=== PATIENT | male | born 1955 | race Caucasian/White ===

== ENCOUNTER 2021-09-19 09:40 | Inpatient (IN) | payer MEDICAID, OTHER ==
[~2021-09-19] VITALS: Ht 157.5 cm; Wt 65.3 kg
[2021-09-19] MEDS ORDERED: PANTOPRAZOLE SODIUM 40 MG/VIAL IV STA (10:43)
[2021-09-19 11:06] LABS: BASOPHILS % 0.9 % (0.0-2.0); EOSINOPHILS % 1.4 % (0.0-5.0); HEMATOCRIT. 48.1 % (42.0-52.0); HEMOGLOBIN. 16.7 g/dL (14.0-18.0); LYMPHOCYTES % 27.3 % (20.0-50.0); MEAN CORPUSCULAR HEMOGLOBIN 37.3 pg (28.0-32.0); MEAN CORPUSCULAR VOLUME 107.4 fL (80.0-94.0); MEAN PLATELET VOLUME 9.8 fl (7.4-10.4); MONOCYTES % 9.8 % (2.0-8.0); NEUTROPHILS % 60.6 % (40.0-76.0); PLATELET 170 x1000/uL (130-400); RED BLOOD CELL COUNT 4.48 mill/uL (4.7-6.1); RED CELL DISTRIBUTION WIDTH 16.3 % (11.6-14.6)
[2021-09-19 11:10] LABS: CHLORIDE 105 mEq/L (98-107)
[2021-09-19 11:15] LABS: INR 1.2
[2021-09-19] MEDS ORDERED: CLONIDINE 0.1MG TABLET PO PRN (14:00)
[2021-09-19] MEDS ORDERED: IPRATROPIUM/ALBUTEROL 0.5-3(2.5)MG/3ML NEB HHN PRN (14:00)
[2021-09-19] MEDS ORDERED: LORAZEPAM 2MG/ML CPJ IV PRN (14:00)
[2021-09-19] MEDS ORDERED: GUAIFENESIN 200MG/10ML SUGAR FREE UDC PO PRN (14:00)
[2021-09-19] MEDS ORDERED: DOCUSATE SODIUM 100MG CAPSULE PO PRN (14:00)
[2021-09-19] MEDS ORDERED: ONDANSETRON HCL 4MG/2ML INJ IV PRN ×2 (14:00→15:15)
[2021-09-19] MEDS: LACTATED RINGERS 1,000 ML IV SCH (14:00)
[2021-09-19] MEDS ORDERED: MAGNESIUM/ALUMINUM HYDROXIDE/SIMETHICONE 30ML UDC PO PRN (14:00)
[2021-09-19] MEDS ORDERED: HYDROCODONE/ACETAMINOPHEN 5/325MG TABLET PO PRN (14:00)
[2021-09-19] MEDS ORDERED: DIPHENHYDRAMINE 50MG/ML VIAL IV PRN (14:00)
[2021-09-19] MEDS: CEFTRIAXONE 1 G PREMIX 50 ML IV SCH (15:00)
[2021-09-19 15:57] LABS: HEPATITIS B SURFACE ANTIGEN NEGATIVE
[2021-09-19] MEDS: PANTOPRAZOLE SODIUM 40 MG/VIAL IV SCH (17:00)
[2021-09-19] MEDS ORDERED: IOHEXOL-300 100 ML BOTTLE ONE (18:23)
[2021-09-19 18:56] VITALS: BP 138/60
[2021-09-19 19:06] VITALS: BP 138/60
[2021-09-19 20:10] VITALS: BP 119/72
[2021-09-20 00:23] VITALS: BP 112/63
[2021-09-20] MEDS: LACTATED RINGERS 1,000 ML IV SCH ×2 (03:00→16:20)
[2021-09-20 04:34] VITALS: BP 109/65
[2021-09-20 04:45] LABS: CLARITY URINE CLEAR (CLEAR); COLOR URINE ORANGE (YELLOW); KETONES URINE TRACE (NEGATIVE); LEUKOCYTE ESTERASE URINE 1+ (NEGATIVE); NITRITE URINE POSITIVE (NEGATIVE); OCCULT BLOOD URINE NEGATIVE (NEGATIVE); PROTEIN URINE 1+ (NEGATIVE); SPECIFIC GRAVITY URINE 1.065 (1.005-1.030)
[2021-09-20 05:12] LABS: *AMPHETAMINES SCREEN URINE NEGATIVE (NEGATIVE)
[2021-09-20 05:13] LABS: *BARBITURATES SCREEN URINE NEGATIVE (NEGATIVE); *BENZODIAZEPINES SCREEN URINE NEGATIVE (NEGATIVE); *COCAINE SCREEN URINE NEGATIVE (NEGATIVE); METHADONE URINE SCREEN NEGATIVE (NEGATIVE); OPIATES URINE SCREEN PRESUMTIVE POSITIVE (NEGATIVE); PHENCYCLIDINE URINE SCREEN NEGATIVE (NEGATIVE)
[2021-09-20 05:14] LABS: CANNABINOID URINE SCREEN NEGATIVE (NEGATIVE)
[2021-09-20] MEDS ORDERED: LIDOCAINE HCL 1% 10 MG/ML 10ML VIAL ONE ×2 (07:53→08:49)
[2021-09-20 08:00] VITALS: BP 111/71
[2021-09-20 08:42] LABS: HEMATOCRIT. 41.4 % (42.0-52.0); HEMOGLOBIN. 14.3 g/dL (14.0-18.0); MEAN CORPUSCULAR HEMOGLOBIN 36.6 pg (28.0-32.0); MEAN CORPUSCULAR VOLUME 105.9 fL (80.0-94.0); MEAN PLATELET VOLUME 10.4 fl (7.4-10.4); PLATELET 137 x1000/uL (130-400); RED BLOOD CELL COUNT 3.91 mill/uL (4.7-6.1); RED CELL DISTRIBUTION WIDTH 15.8 % (11.6-14.6)
[2021-09-20] MEDS ORDERED: SODIUM BICARBONATE 4% (2.4MEQ) 5ML VIAL IV ONE (08:50)
[2021-09-20 08:56] LABS: INR 1.4; PROTHROMBIN TIME 14.2 sec (9.6-11.0)
[2021-09-20 09:00] LABS: CHLORIDE 107 mEq/L (98-107)
[2021-09-20 09:07] LABS: LDL CHOLESTEROL 73 mg/dL (5-100)
[2021-09-20 09:08] LABS: HDL CHOLESTEROL 27 mg/dL (40-59)
[2021-09-20 09:09] LABS: CREATINE KINASE 29 IU/L (39-308); T4 FREE 1.55 ng/dL (0.76-1.46)
[2021-09-20] MEDS: PANTOPRAZOLE SODIUM 40 MG/VIAL IV SCH ×2 (10:09→17:49)
[2021-09-20 12:00] VITALS: BP 116/68
[2021-09-20 13:45] LABS: PLATELET ESTIMATE NORMAL
[2021-09-20] MEDS: CEFTRIAXONE 1 G PREMIX 50 ML IV SCH (15:00)
[2021-09-20 16:00] VITALS: BP 110/71
[2021-09-20 20:00] VITALS: BP 110/57
[2021-09-20] MEDS ORDERED: CHLORDIAZEPOXIDE 25MG CAPSULE PO NR (22:15)
[2021-09-20] MEDS ORDERED: NALOXONE HCL 0.4MG/ML VIAL IV PRN (22:30)
[2021-09-21] VITALS: BP 104/63
[2021-09-21 04:00] VITALS: BP 123/71
[2021-09-21] MEDS: LACTATED RINGERS 1,000 ML IV SCH (04:55)
[2021-09-21 06:30] LABS: BASOPHILS % 0.7 % (0.0-2.0); EOSINOPHILS % 1.7 % (0.0-5.0); HEMATOCRIT. 43.4 % (42.0-52.0); HEMOGLOBIN. 14.9 g/dL (14.0-18.0); LYMPHOCYTES % 25.9 % (20.0-50.0); MEAN CORPUSCULAR HEMOGLOBIN 36.6 pg (28.0-32.0); MEAN CORPUSCULAR VOLUME 106.6 fL (80.0-94.0); MEAN PLATELET VOLUME 10.5 fl (7.4-10.4); NEUTROPHILS % 59.7 % (40.0-76.0); PLATELET 130 x1000/uL (130-400); RED BLOOD CELL COUNT 4.08 mill/uL (4.7-6.1); RED CELL DISTRIBUTION WIDTH 15.4 % (11.6-14.6)
[2021-09-21 06:37] LABS: CHLORIDE 105 mEq/L (98-107)
[2021-09-21 08:00] VITALS: BP 107/66
[2021-09-21] MEDS: PANTOPRAZOLE SODIUM 40 MG/VIAL IV SCH ×2 (08:43→17:13)
[2021-09-21] MEDS ORDERED: CEFTRIAXONE 1,000 MG in DEXTROSE 5% WATER 50 ML IV SCH (09:00)
[2021-09-21 12:00] VITALS: BP 116/70
[2021-09-21] MEDS ORDERED: CITA10TA16 PO (15:34)
[2021-09-21] MEDS ORDERED: CITA20TA75 MT (15:39)
[2021-09-21] MEDS ORDERED: L25 MT (15:39)
[2021-09-21 16:00] VITALS: BP 111/67
[2021-09-21 16:22] VITALS: BP 111/67
[2021-09-21] MEDS ORDERED: LACTULOSE 20G/30ML UDC PO SCH (22:00)
[2021-09-22] MEDS ORDERED: THIAMINE HCL 100MG TABLET PO SCH (09:00)
[2021-09-22] MEDS ORDERED: CITALOPRAM HYDROBROMIDE 10MG TABLET PO SCH (09:00)
[2021-09-22] MEDS ORDERED: FOLIC ACID 1MG TABLET PO SCH (09:00)
== END 2021-09-21 17:50 | disposition home or self-care (01) | DRG 280 ==
LOC: ER 09:40 → EDBEDREQ 11:01 → 7EST 12:08 → EDBEDREQ 12:10 → EDBEDREQTM 12:10 → ER 12:22
PROVIDERS: ADMIT Student in an Organized Health Care Education/Training Program; ATTEND Student in an Organized Health Care Education/Training Program
PROC: 0W9G3ZZ Drainage of Peritoneal Cavity, Percutaneous Approach (ICD-10-PCS; principal; 2021-09-20)
PROC: 02HV33Z Insertion of Infusion Device into Superior Vena Cava, Percutaneous Approach (ICD-10-PCS; 2021-09-20)
PROC: B518ZZA Fluoroscopy of Superior Vena Cava, Guidance (ICD-10-PCS; 2021-09-20)
PROC: B548ZZA Ultrasonography of Superior Vena Cava, Guidance (ICD-10-PCS; 2021-09-20)
DX: K70.11 Alcoholic hepatitis with ascites (principal); K76.6 Portal hypertension; E72.20 Disorder of urea cycle metabolism, unspecified; K92.0 Hematemesis; I85.10 Secondary esophageal varices without bleeding; K92.2 Gastrointestinal hemorrhage, unspecified; F32.9 Major depressive disorder, single episode, unspecified; Z53.29 Procedure and treatment not carried out because of patient's decision for other reasons; F10.20 Alcohol dependence, uncomplicated; Y90.5 Blood alcohol level of 100-119 mg/100 ml; Z20.822 Contact with and (suspected) exposure to COVID-19; R63.4 Abnormal weight loss; F41.1 Generalized anxiety disorder; I10 Essential (primary) hypertension; Z68.26 Body mass index [BMI] 26.0-26.9, adult; Z88.0 Allergy status to penicillin; Z71.41 Alcohol abuse counseling and surveillance of alcoholic
CPT/HCPCS: 36415; 36573; 49083; 71045; 74177; 76700; 80048; 80053; 80061; 80076; 80305; 80320; 81003; 82105; 82140; 82150; 82550; 82746; 83540; 83550; 83615; 83880; 84134; 84439; 84443; 84478; 84484; 85025; 86705; 86709; 86803; 86850; 86900; 87340; 87426; 93970; 99285; C1725; C1769; C9113; J0696; J3490; J7042; J7060; Q9967; G0480

== ENCOUNTER 2022-01-22 06:16 | Emergency (ER) | payer MEDICAID ==
[~2022-01-22] VITALS: Ht 154.9 cm; Wt 68.7 kg
[~2022-01-22 06:16] MED LIST: CITA20TA75 MT; L25 MT
[2022-01-22] MEDS ORDERED: KETOROLAC 30MG/ML VIAL IV STA (08:02)
[2022-01-22 08:45] VITALS: BP 103/76
[2022-01-22 08:59] LABS: BASOPHILS % 1.1 % (0.0-2.0); EOSINOPHILS % 1.7 % (0.0-5.0); HEMATOCRIT. 44.5 % (42.0-52.0); LYMPHOCYTES % 34.7 % (20.0-50.0); MEAN CORPUSCULAR HEMOGLOBIN 33.7 pg (28.0-32.0); MEAN CORPUSCULAR VOLUME 99.8 fL (80.0-94.0); MEAN PLATELET VOLUME 9.5 fl (7.4-10.4); MONOCYTES % 8.2 % (2.0-8.0); NEUTROPHILS % 54.3 % (40.0-76.0); PLATELET 123 x1000/uL (130-400); RED BLOOD CELL COUNT 4.45 mill/uL (4.7-6.1); RED CELL DISTRIBUTION WIDTH 18.6 % (11.6-14.6)
[2022-01-22 09:06] LABS: CHLORIDE 106 mEq/L (98-107)
[2022-01-22 10:46] LABS: INR 1.4; PROTHROMBIN TIME 14.6 sec (9.6-11.0)
[2022-01-22] MEDS ORDERED: LIDOCAINE HCL 1% 10 MG/ML 10ML VIAL ONE (11:24)
[2022-01-22] MEDS ORDERED: SODIUM BICARBONATE 4% (2.4MEQ) 5ML VIAL IV ONE (11:24)
[2022-02-17] MEDS ORDERED: SPIR25TA MT (08:58)
[2022-02-17] MEDS ORDERED: METR-167 MT (08:58)
[2022-02-17] MEDS ORDERED: LEVO500T90 MT (08:58)
[2022-02-17] MEDS ORDERED: FURO-152 MT (08:58)
== END 2022-01-22 13:13 | disposition home or self-care (01) ==
LOC: ER 06:16
DX: R18.8 Other ascites (principal); Z88.0 Allergy status to penicillin; I10 Essential (primary) hypertension
CPT/HCPCS: 36415; 49083; 80053; 85025; 85610; 87426; 93005; 96374; 99285; J1885; J3490; Z7610

== ENCOUNTER 2022-02-01 11:46 | Emergency (ER) | payer MEDICAID ==
[~2022-02-01] VITALS: Ht 167.6 cm; Wt 75.0 kg
[2022-02-01 12:09] VITALS: BP 129/79
[2022-02-01] MEDS ORDERED: LIDOCAINE HCL 1% 20ML VIAL (Pyxis) INJ INFIL STA (13:51)
[2022-02-01 15:24] LABS: BASOPHILS % 0.9 % (0.0-2.0); EOSINOPHILS % 0.7 % (0.0-5.0); HEMATOCRIT. 45.8 % (42.0-52.0); HEMOGLOBIN. 15.7 g/dL (14.0-18.0); LYMPHOCYTES % 20.3 % (20.0-50.0); MEAN CORPUSCULAR HEMOGLOBIN 34.5 pg (28.0-32.0); MEAN CORPUSCULAR VOLUME 100.7 fL (80.0-94.0); MEAN PLATELET VOLUME 9.1 fl (7.4-10.4); MONOCYTES % 14.9 % (2.0-8.0); NEUTROPHILS % 63.2 % (40.0-76.0); PLATELET 134 x1000/uL (130-400); RED BLOOD CELL COUNT 4.54 mill/uL (4.7-6.1); RED CELL DISTRIBUTION WIDTH 17.4 % (11.6-14.6)
[2022-02-01 15:34] LABS: INR 1.3
== END 2022-02-01 18:01 | disposition home or self-care (01) ==
LOC: ER 11:46
DX: R18.8 Other ascites (principal); K74.60 Unspecified cirrhosis of liver; I10 Essential (primary) hypertension; Z88.0 Allergy status to penicillin
CPT/HCPCS: 36415; 85025; 99283

== ENCOUNTER 2022-02-02 07:32 | Emergency (ER) | payer MEDICAID ==
[~2022-02-02] VITALS: Ht 160 cm; Wt 77.0 kg
[2022-02-02 08:15] LABS: EOSINOPHILS % 2.3 % (0.0-5.0); HEMATOCRIT. 44.7 % (42.0-52.0); HEMOGLOBIN. 15.4 g/dL (14.0-18.0); LYMPHOCYTES % 26.8 % (20.0-50.0); MEAN CORPUSCULAR HEMOGLOBIN 34.3 pg (28.0-32.0); MEAN CORPUSCULAR VOLUME 99.8 fL (80.0-94.0); MEAN PLATELET VOLUME 8.5 fl (7.4-10.4); MONOCYTES % 13.5 % (2.0-8.0); NEUTROPHILS % 56.4 % (40.0-76.0); PLATELET 139 x1000/uL (130-400); RED BLOOD CELL COUNT 4.48 mill/uL (4.7-6.1); RED CELL DISTRIBUTION WIDTH 17.6 % (11.6-14.6)
[2022-02-02 08:26] LABS: INR 1.3; PARTIAL THROMBOPLASTIN TIME 34.2 sec (23.4-31.0); PROTHROMBIN TIME 13.9 sec (9.6-11.0)
[2022-02-02] MEDS ORDERED: SODIUM BICARBONATE 4% (2.4MEQ) 5ML VIAL IV ONE (11:20)
[2022-02-02] MEDS ORDERED: LIDOCAINE HCL/PF 1% 10 MG/ML 5ML VIAL ONE (11:20)
[2022-02-02 13:16] VITALS: BP 103/70
== END 2022-02-02 13:18 | disposition home or self-care (01) ==
LOC: ER 08:12
DX: R18.8 Other ascites (principal); I10 Essential (primary) hypertension; Z88.0 Allergy status to penicillin; Z20.822 Contact with and (suspected) exposure to COVID-19
CPT/HCPCS: 36415; 49083; 85025; 85610; 85730; 87426; 99285; C9803; J3490; Z7610

== ENCOUNTER 2022-02-14 07:51 | Inpatient (IN) | payer MEDICAID, OTHER ==
[~2022-02-14] VITALS: Ht 162.6 cm; Wt 65.8 kg
[2022-02-14 09:42] LABS: BASOPHILS % 1.3 % (0.0-2.0); EOSINOPHILS % 1.4 % (0.0-5.0); HEMATOCRIT. 44.5 % (42.0-52.0); HEMOGLOBIN. 14.9 g/dL (14.0-18.0); LYMPHOCYTES % 38.9 % (20.0-50.0); MEAN CORPUSCULAR HEMOGLOBIN 34.8 pg (28.0-32.0); MEAN CORPUSCULAR VOLUME 104.1 fL (80.0-94.0); MEAN PLATELET VOLUME 8.4 fl (7.4-10.4); MONOCYTES % 10.4 % (2.0-8.0); PLATELET 125 x1000/uL (130-400); RED BLOOD CELL COUNT 4.27 mill/uL (4.7-6.1); RED CELL DISTRIBUTION WIDTH 17.4 % (11.6-14.6)
[2022-02-14 09:49] LABS: CHLORIDE 104 mEq/L (98-107)
[2022-02-14 09:58] LABS: D-DIMER 10.62 mg/L FEU (<0.50); INR 1.4; PROTHROMBIN TIME 14.7 sec (9.6-11.0)
[2022-02-14 10:02] LABS: ETHANOL BLOOD < 10 mg/dL
[2022-02-14] MEDS ORDERED: SODIUM BICARBONATE 4% (2.4MEQ) 5ML VIAL IV ONE (10:48)
[2022-02-14] MEDS ORDERED: LIDOCAINE HCL 1% 30ML VIAL (10MG/ML) ONE (10:48)
[2022-02-14] MEDS ORDERED: SODIUM CHLORIDE 0.9% 1,000 ML IV ONE (18:00)
[2022-02-14] MEDS ORDERED: CEFTRIAXONE 2 G PREMIX 50 ML IV ONE (18:00)
[2022-02-14 18:23] LABS: CLARITY URINE CLEAR (CLEAR); COLOR URINE ORANGE (YELLOW); KETONES URINE NEGATIVE (NEGATIVE); LEUKOCYTE ESTERASE URINE TRACE (NEGATIVE); NITRITE URINE POSITIVE (NEGATIVE); OCCULT BLOOD URINE NEGATIVE (NEGATIVE); PH URINE 5.5 (4.5-8.0); PROTEIN URINE TRACE (NEGATIVE); SPECIFIC GRAVITY URINE 1.029 (1.005-1.030)
[2022-02-14 18:29] LABS: *AMPHETAMINES SCREEN URINE NEGATIVE (NEGATIVE); *BARBITURATES SCREEN URINE NEGATIVE (NEGATIVE); *BENZODIAZEPINES SCREEN URINE NEGATIVE (NEGATIVE); *COCAINE SCREEN URINE NEGATIVE (NEGATIVE); CANNABINOID URINE SCREEN NEGATIVE (NEGATIVE); METHADONE URINE SCREEN NEGATIVE (NEGATIVE); OPIATES URINE SCREEN NEGATIVE (NEGATIVE); PHENCYCLIDINE URINE SCREEN NEGATIVE (NEGATIVE)
[2022-02-14] MEDS ORDERED: CEFTRIAXONE 2 G in DEXTROSE 5% WATER 50 ML IV SCH (18:30)
[2022-02-14] MEDS ORDERED: CLONIDINE 0.1MG TABLET PO PRN (19:00)
[2022-02-14] MEDS ORDERED: ACETAMINOPHEN 325MG TABLET PO PRN ×2 (19:00)
[2022-02-14] MEDS ORDERED: KETOROLAC 15MG/ML VIAL IV PRN (19:00)
[2022-02-14] MEDS ORDERED: ONDANSETRON HCL 4MG/2ML INJ IV PRN (19:00)
[2022-02-14] MEDS ORDERED: ZOLPIDEM TARTRATE 5MG TABLET PO PRN (19:00)
[2022-02-14] MEDS ORDERED: GUAIFENESIN 200MG/10ML SUGAR FREE UDC PO PRN (19:00)
[2022-02-14] MEDS ORDERED: DOCUSATE SODIUM 100MG CAPSULE PO PRN (19:00)
[2022-02-14] MEDS ORDERED: MAGNESIUM/ALUMINUM HYDROXIDE/SIMETHICONE 30ML UDC PO PRN (19:00)
[2022-02-14] MEDS ORDERED: IPRATROPIUM/ALBUTEROL 0.5-3(2.5)MG/3ML NEB NEB PRN (19:00)
[2022-02-14] MEDS ORDERED: NITROGLYCERIN 0.4MG TABLET SL SL PRN (19:15)
[2022-02-14 19:38] LABS: T4 FREE 1.62 ng/dL (0.76-1.46)
[2022-02-14] MEDS ORDERED: METRONIDAZOLE 500 MG PREMIX 100 ML IV SCH (20:00)
[2022-02-14 20:06] LABS: FOLIC ACID (FOLATE) SERUM 6.9 ng/mL (>5.38)
[2022-02-14] MEDS: ENOXAPARIN 40MG/0.4ML SYR SUBCUT SCH (20:21)
[2022-02-14 21:50] VITALS: BP 99/56
[2022-02-14] MEDS: ASCORBIC ACID 500 MG TABLET PO SCH (22:48)
[2022-02-14] MEDS: FAMOTIDINE 20MG TABLET PO SCH (22:49)
[2022-02-15] VITALS (8 sets, daily range): BP systolic 98–117; BP diastolic 54–69
[2022-02-15] MEDS: METRONIDAZOLE 500 MG PREMIX 100 ML IV SCH ×3 (05:49→21:32)
[2022-02-15 06:09] LABS: CHLORIDE 105 mEq/L (98-107)
[2022-02-15 06:18] LABS: PHOSPHORUS 2.8 mg/dL (2.5-4.9)
[2022-02-15 06:22] LABS: BASOPHILS % 1.1 % (0.0-2.0); EOSINOPHILS % 2.3 % (0.0-5.0); HEMATOCRIT. 41.9 % (42.0-52.0); HEMOGLOBIN. 14.3 g/dL (14.0-18.0); LYMPHOCYTES % 40.2 % (20.0-50.0); MEAN CORPUSCULAR HEMOGLOBIN 35.4 pg (28.0-32.0); MEAN CORPUSCULAR VOLUME 103.7 fL (80.0-94.0); NEUTROPHILS % 45.4 % (40.0-76.0); RED BLOOD CELL COUNT 4.04 mill/uL (4.7-6.1); RED CELL DISTRIBUTION WIDTH 17.3 % (11.6-14.6)
[2022-02-15] MEDS: ZINC SULFATE 220 MG ( 50 ) CAPSULE PO SCH (08:45)
[2022-02-15] MEDS: FAMOTIDINE 20MG TABLET PO SCH ×2 (08:45→21:31)
[2022-02-15] MEDS: ASCORBIC ACID 500 MG TABLET PO SCH ×2 (08:45→21:31)
[2022-02-15] MEDS: CHOLECALCIFEROL (D3) 1000 UNIT TABLET PO SCH (08:46)
[2022-02-15] MEDS ORDERED: DEXAMETHASONE 4MG TABLET PO SCH (09:00)
[2022-02-15 10:01] LABS: MEAN PLATELET VOLUME 9.1 fl (7.4-10.4); PLATELET 128 x1000/uL (130-400)
[2022-02-15] MEDS ORDERED: CEFTRIAXONE 1,000 MG in DEXTROSE 5% WATER 50 ML IV SCH (20:00)
[2022-02-15] MEDS: ENOXAPARIN 40MG/0.4ML SYR SUBCUT SCH (21:32)
[2022-02-15] MEDS: CEFTRIAXONE 1,000 MG in DEXTROSE 5% WATER 50 ML IV SCH (22:19)
[2022-02-16] VITALS: BP 120/56
[2022-02-16 04:00] VITALS: BP 115/69
[2022-02-16] MEDS: METRONIDAZOLE 500 MG PREMIX 100 ML IV SCH ×3 (06:23→21:57)
[2022-02-16] MEDS: ZINC SULFATE 220 MG ( 50 ) CAPSULE PO SCH (09:07)
[2022-02-16] MEDS: ASCORBIC ACID 500 MG TABLET PO SCH ×2 (09:07→22:07)
[2022-02-16] MEDS: CHOLECALCIFEROL (D3) 1000 UNIT TABLET PO SCH (09:07)
[2022-02-16] MEDS: FAMOTIDINE 20MG TABLET PO SCH ×2 (09:07→22:07)
[2022-02-16] MEDS ORDERED: KETOROLAC 15MG/ML VIAL IV PRN (09:30)
[2022-02-16] MEDS: ENOXAPARIN 40MG/0.4ML SYR SUBCUT SCH (21:57)
[2022-02-16] MEDS: CEFTRIAXONE 1,000 MG in DEXTROSE 5% WATER 50 ML IV SCH (21:57)
[2022-02-17] MEDS: METRONIDAZOLE 500 MG PREMIX 100 ML IV SCH (05:51)
[2022-02-17 08:00] VITALS: BP 94/58
[2022-02-17] MEDS: FAMOTIDINE 20MG TABLET PO SCH (08:32)
[2022-02-17] MEDS: ASCORBIC ACID 500 MG TABLET PO SCH (08:32)
[2022-02-17] MEDS: ZINC SULFATE 220 MG ( 50 ) CAPSULE PO SCH (08:32)
[2022-02-17] MEDS: CHOLECALCIFEROL (D3) 1000 UNIT TABLET PO SCH (08:33)
[2022-02-17] MEDS ORDERED: SPIR25TA MT (08:58)
[2022-02-17] MEDS ORDERED: METR-167 MT (08:58)
[2022-02-17] MEDS ORDERED: FURO-152 MT (08:58)
[2022-02-17] MEDS ORDERED: LEVO500T90 MT (08:58)
[2022-02-17 12:00] VITALS: BP 118/63
[2022-02-17 12:35] VITALS: BP 118/63
== END 2022-02-17 14:49 | disposition home or self-care (01) | DRG 720 ==
LOC: ER 07:51 → 6WST 17:56 → EDBEDREQTM 18:01 → EDBEDREQ 18:01 → ENRESERV 19:47
PROVIDERS: ADMIT Internal Medicine; ATTEND Internal Medicine
PROC: 0W9G3ZZ Drainage of Peritoneal Cavity, Percutaneous Approach (ICD-10-PCS; principal; 2022-02-14)
DX: A41.9 Sepsis, unspecified organism (principal); E43 Unspecified severe protein-calorie malnutrition; K65.2 Spontaneous bacterial peritonitis; K70.31 Alcoholic cirrhosis of liver with ascites; K76.6 Portal hypertension; E87.1 Hypo-osmolality and hyponatremia; R82.81 Pyuria; F10.20 Alcohol dependence, uncomplicated; Z20.822 Contact with and (suspected) exposure to COVID-19; E87.6 Hypokalemia; Z88.0 Allergy status to penicillin; Z68.24 Body mass index [BMI] 24.0-24.9, adult
CPT/HCPCS: 36415; 49083; 80053; 80305; 80320; 81003; 82607; 82746; 83036; 83540; 83550; 83605; 83735; 83880; 84100; 84439; 84443; 84484; 85025; 85379; 87075; 87426; 93970; 99285; C9803; J0696; J1650; J3490; J7030; J7060; J8540; G0480

== ENCOUNTER 2022-03-02 06:56 | Emergency (ER) | payer MEDICAID, OTHER ==
[~2022-03-02] VITALS: Ht 152.4 cm; Wt 63.3 kg
[~2022-03-02 06:56] MED LIST changes: -CITA20TA75 MT; +FURO-152 MT; -L25 MT; +LEVO500T90 MT; +METR-167 MT; +SPIR25TA MT
[2022-03-02 07:00] VITALS: BP 114/63
[2022-03-02 09:14] LABS: CHLORIDE 99 mEq/L (98-107)
[2022-03-02 09:14] LABS: BASOPHILS % 0.9 % (0.0-2.0); EOSINOPHILS % 1.9 % (0.0-5.0); HEMATOCRIT. 44.9 % (42.0-52.0); HEMOGLOBIN. 15.6 g/dL (14.0-18.0); LYMPHOCYTES % 33.5 % (20.0-50.0); MEAN CORPUSCULAR HEMOGLOBIN 35.4 pg (28.0-32.0); MEAN CORPUSCULAR VOLUME 102.2 fL (80.0-94.0); MEAN PLATELET VOLUME 8.9 fl (7.4-10.4); MONOCYTES % 10.5 % (2.0-8.0); NEUTROPHILS % 53.2 % (40.0-76.0); PLATELET 123 x1000/uL (130-400); RED CELL DISTRIBUTION WIDTH 16.4 % (11.6-14.6)
[2022-03-02 09:25] LABS: INR 1.3; PROTHROMBIN TIME 14.1 sec (9.6-11.0)
[2022-03-02] MEDS ORDERED: LIDOCAINE HCL 1% 30ML VIAL (10MG/ML) ONE (10:34)
[2022-03-02] MEDS ORDERED: SODIUM BICARBONATE 4% (2.4MEQ) 5ML VIAL IV ONE (10:34)
== END 2022-03-02 14:54 | disposition home or self-care (01) ==
LOC: ER 06:56
DX: R18.8 Other ascites (principal); I10 Essential (primary) hypertension; Z20.822 Contact with and (suspected) exposure to COVID-19; Z88.0 Allergy status to penicillin; Z98.890 Other specified postprocedural states
CPT/HCPCS: 36415; 49083; 80053; 83690; 85025; 85610; 87070; 87075; 87205; 87426; 89050; 99285; C9803; J3490; Z7610

== ENCOUNTER 2022-03-07 09:28 | Emergency (ER) | payer OTHER ==
[~2022-03-07] VITALS: Ht 165.1 cm; Wt 68.0 kg
[2022-03-07] MEDS ORDERED: ACETAMINOPHEN 325MG TABLET PO STA (10:14)
[2022-03-07] MEDS ORDERED: LIDOCAINE HCL 1% 30ML VIAL (10MG/ML) ONE (10:27)
[2022-03-07] MEDS ORDERED: SODIUM BICARBONATE 4% (2.4MEQ) 5ML VIAL IV ONE (10:28)
[2022-03-07 10:47] LABS: HEMATOCRIT. 42.9 % (42.0-52.0); HEMOGLOBIN. 14.9 g/dL (14.0-18.0); MEAN CORPUSCULAR HEMOGLOBIN 35.6 pg (28.0-32.0); MEAN CORPUSCULAR VOLUME 102.2 fL (80.0-94.0); MEAN PLATELET VOLUME 10.2 fl (7.4-10.4); RED CELL DISTRIBUTION WIDTH 15.7 % (11.6-14.6)
[2022-03-07 10:55] LABS: CHLORIDE 90 mEq/L (98-107)
[2022-03-07 11:50] LABS: PLATELET 183 x1000/uL (130-400)
[2022-03-07 11:54] LABS: PLATELET ESTIMATE NORMAL
[2022-03-07 12:56] LABS: INR 1.3; PROTHROMBIN TIME 13.8 sec (9.6-11.0)
[2022-03-07] MEDS ORDERED: ACETAMINOPHEN 325MG TABLET PO NR (13:30)
[2022-03-07 15:00] VITALS: BP 97/61
== END 2022-03-07 15:20 | disposition home or self-care (01) ==
LOC: ER 09:28
DX: R18.8 Other ascites (principal); K74.60 Unspecified cirrhosis of liver; I12.9 Hypertensive chronic kidney disease with stage 1 through stage 4 chronic kidney disease, or unspecified chronic kidney disease; N18.9 Chronic kidney disease, unspecified; E87.1 Hypo-osmolality and hyponatremia; Z88.0 Allergy status to penicillin; Z20.822 Contact with and (suspected) exposure to COVID-19
CPT/HCPCS: 36415; 49083; 80053; 83690; 85025; 85610; 87070; 87075; 87205; 87426; 89050; 99285; C9803; J3490; Z7610

== ENCOUNTER 2022-03-18 05:26 | Emergency (ER) | payer OTHER ==
[~2022-03-18] VITALS: Ht 154.9 cm; Wt 59.7 kg
[2022-03-18 05:33] VITALS: BP 108/61
[2022-03-18 08:27] LABS: CLARITY URINE CLEAR (CLEAR); COLOR URINE DARK YELLOW (YELLOW); KETONES URINE TRACE (NEGATIVE); LEUKOCYTE ESTERASE URINE TRACE (NEGATIVE); NITRITE URINE NEGATIVE (NEGATIVE); OCCULT BLOOD URINE NEGATIVE (NEGATIVE); PH URINE 5.5 (4.5-8.0); PROTEIN URINE TRACE (NEGATIVE); SPECIFIC GRAVITY URINE 1.025 (1.005-1.030); UROBILINOGEN URINE 0.2 E.U./dL (0.2-1.0)
[2022-03-18 08:51] LABS: CHLORIDE 92 mEq/L (98-107)
[2022-03-18 08:54] LABS: BASOPHILS % 0.9 % (0.0-2.0); EOSINOPHILS % 1.3 % (0.0-5.0); HEMATOCRIT. 43.5 % (42.0-52.0); HEMOGLOBIN. 15.6 g/dL (14.0-18.0); LYMPHOCYTES % 25.8 % (20.0-50.0); MEAN CORPUSCULAR HEMOGLOBIN 36.7 pg (28.0-32.0); MEAN CORPUSCULAR VOLUME 102.1 fL (80.0-94.0); MONOCYTES % 9.2 % (2.0-8.0); NEUTROPHILS % 62.8 % (40.0-76.0); RED BLOOD CELL COUNT 4.26 mill/uL (4.7-6.1); RED CELL DISTRIBUTION WIDTH 16.4 % (11.6-14.6)
[2022-03-18 09:16] LABS: PLATELET 175 x1000/uL (130-400)
[2022-03-18 10:23] LABS: INR 1.2; PARTIAL THROMBOPLASTIN TIME 32.2 sec (23.4-31.0)
[2022-03-18] MEDS ORDERED: LIDOCAINE HCL 1% 30ML VIAL (10MG/ML) ONE (10:44)
[2022-03-18] MEDS ORDERED: SODIUM BICARBONATE 4% (2.4MEQ) 5ML VIAL IV ONE (10:45)
== END 2022-03-18 13:50 | disposition home or self-care (01) ==
LOC: ER 05:35
DX: R18.8 Other ascites (principal); R10.84 Generalized abdominal pain; Z88.0 Allergy status to penicillin; Z20.822 Contact with and (suspected) exposure to COVID-19
CPT/HCPCS: 36415; 49083; 80053; 81003; 83690; 83880; 84484; 85025; 85610; 85730; 86850; 86900; 86901; 87426; 99285; C9803; J3490; Z7610; 99284

== ENCOUNTER 2022-03-27 07:10 | Inpatient (IN) | payer OTHER ==
[2022-03-27] VITALS (38 sets, daily range): BP systolic 50–109; BP diastolic 22–68
[~2022-03-27] VITALS: Ht 152.4 cm; Wt 68.0 kg
[2022-03-27] MEDS ORDERED: SODIUM CHLORIDE 0.9% 1000ML BAG (SEPSIS BOLUS) IV ONE (08:00)
[2022-03-27] MEDS ORDERED: CEFTRIAXONE 2 G PREMIX 50 ML IV ONE (08:00)
[2022-03-27 08:36] LABS: HEMATOCRIT. 42.9 % (42.0-52.0); HEMOGLOBIN. 14.5 g/dL (14.0-18.0); MEAN CORPUSCULAR HEMOGLOBIN 35.3 pg (28.0-32.0); MEAN CORPUSCULAR VOLUME 104.4 fL (80.0-94.0); MEAN PLATELET VOLUME 7.9 fl (7.4-10.4); PLATELET 134 x1000/uL (130-400); RED BLOOD CELL COUNT 4.11 mill/uL (4.7-6.1); RED CELL DISTRIBUTION WIDTH 16.9 % (11.6-14.6)
[2022-03-27 08:41] LABS: CHLORIDE 95 mEq/L (98-107)
[2022-03-27] MEDS ORDERED: CEFTRIAXONE 2 G in DEXTROSE 5% WATER 50 ML IV NR (09:00)
[2022-03-27] MEDS ORDERED: ONDANSETRON HCL 4MG/2ML INJ IV ONE (09:15)
[2022-03-27 09:21] LABS: PLATELET ESTIMATE NORMAL
[2022-03-27] MEDS ORDERED: IOHEXOL-300 100 ML BOTTLE ONE (10:31)
[2022-03-27] MEDS ORDERED: MORPHINE SULFATE 4 MG/ML CPJ (NOT FOR IM USE) IV ONE (11:15)
[2022-03-27] MEDS ORDERED: SODIUM CHLORIDE 0.9% 1,000 ML IV NR (13:00)
[2022-03-27] MEDS ORDERED: PROPOFOL 10MG/ML 100ML 100 ML IV NR (13:30)
[2022-03-27] MEDS ORDERED: SUCCINYLCHOLINE CHLORIDE 200MG/10ML IV NR (13:30)
[2022-03-27] MEDS ORDERED: SODIUM BICARBONATE 8.4% 1 MEQ/ML 50ML SYR IV ONE (13:30)
[2022-03-27] MEDS ORDERED: NOREPINEPHRINE 8 MG in DEXT 5% WATER 242 ML IV PRN (13:30)
[2022-03-27] MEDS ORDERED: FENTANYL CITRATE/PF 50MCG/ML 2ML VIAL IV ONE (13:45)
[2022-03-27] MEDS ORDERED: FENTANYL 2500MCG/250ML PMX 250 ML IV ONE ×2 (13:45→14:45)
[2022-03-27] MEDS ORDERED: NOREPINEPHRINE 8MG/250ML PMX 250 ML IV ONE ×2 (13:45→17:03)
[2022-03-27 14:24] LABS: BG BASE EXCESS -24.2 mmol/L (-2.0-2.0); BG CARBOXYHEMOGLOBIN 0.5 % (0.5-1.5); BG DEOXYHEMOGLOBIN 5.7 % (0.0-5.0); BG HCO3 ACT 7.6 mmol/L (22.0-26.0); BG METHEMOGLOBIN 0.4 % (0.0-1.5); BG OXYGEN SATURATION 94.2 % (92.0-98.5); BG OXYHEMOGLOBIN 93.4 % (94.0-97.0); BG PCO2 35.8 mmHg (35.0-45.0); BG PH 6.942 (7.350-7.450); BG PO2 99.5 mmHg (75.0-100.0); BG SAMPLE SITE LEFT FEMORAL; BG TOTAL HEMOGLOBIN 15.9 g/dL (12.0-18.0); BG VENT MODE VENT - AC
[2022-03-27] MEDS ORDERED: ACETAMINOPHEN 650MG/20.3ML UDC GT PRN ×2 (14:30)
[2022-03-27] MEDS ORDERED: SODIUM BICARBONATE 150 MEQ in SODIUM CHLORIDE 0.45% 1,000 ML IV SCH (14:30)
[2022-03-27] MEDS ORDERED: ACETAMINOPHEN 325MG TABLET PO PRN ×2 (14:30)
[2022-03-27] MEDS ORDERED: CLONIDINE 0.1MG TABLET PO PRN (14:30)
[2022-03-27] MEDS ORDERED: PANTOPRAZOLE SODIUM 40 MG/VIAL IV SCH (14:30)
[2022-03-27] MEDS ORDERED: IPRATROPIUM/ALBUTEROL 0.5-3(2.5)MG/3ML NEB HHN PRN (14:30)
[2022-03-27] MEDS ORDERED: ONDANSETRON HCL 4MG/2ML INJ IV PRN (14:30)
[2022-03-27] MEDS ORDERED: DOCUSATE SODIUM 100MG CAPSULE PO PRN (14:30)
[2022-03-27] MEDS ORDERED: MIDAZOLAM HCL 100 MG in DEXT 5% WATER 80 ML IV ONE (14:45)
[2022-03-27] MEDS: IPRATROPIUM BROMIDE (0.02%) 0.5MG/2.5ML NEB HHN SCH ×2 (14:45→20:49)
[2022-03-27] MEDS ORDERED: PHENYLEPHRINE 100 MG in DEXT 5% WATER 240 ML IV PRN (14:45)
[2022-03-27] MEDS ORDERED: MIDAZOLAM HCL 100 MG in SODIUM CHLORIDE 0.9% 80 ML IV ONE (15:00)
[2022-03-27] MEDS: SODIUM BICARBONATE 150 MEQ in SODIUM CHLORIDE 0.45% 1,000 ML IV SCH (15:12)
[2022-03-27] MEDS ORDERED: SODIUM BICARBONATE 8.4% 1 MEQ/ML 50ML SYR IV NR (15:30)
[2022-03-27 15:47] LABS: BG BASE EXCESS -21.5 mmol/L (-2.0-2.0); BG CARBOXYHEMOGLOBIN 0.7 % (0.5-1.5); BG DEOXYHEMOGLOBIN 10.8 % (0.0-5.0); BG HCO3 ACT 7.7 mmol/L (22.0-26.0); BG METHEMOGLOBIN 0.5 % (0.0-1.5); BG OXYGEN SATURATION 89.1 % (92.0-98.5); BG PCO2 28.5 mmHg (35.0-45.0); BG PH 7.051 (7.350-7.450); BG PO2 68.7 mmHg (75.0-100.0); BG SAMPLE SITE LEFT FEMORAL; BG TOTAL HEMOGLOBIN 15.9 g/dL (12.0-18.0); BG VENT MODE VENT - AC
[2022-03-27] MEDS ORDERED: LEVOFLOXACIN 500MG PREMIX 100 ML IV NR (16:00)
[2022-03-27 16:18] LABS: INR 1.8; PROTHROMBIN TIME 18.6 sec (9.6-11.0)
[2022-03-27] MEDS ORDERED: AMPICILLIN SOD/SULBACTAM NA 1.5 G in SODIUM CHLORIDE 0.9% 50 ML IV SCH (16:30)
[2022-03-27] MEDS: PHENYLEPHRINE 100 MG in DEXT 5% WATER 240 ML IV PRN (16:59)
[2022-03-27] MEDS: ALBUMIN HUMAN 25GM/100ML (25%) IV SCH ×2 (17:01→22:44)
[2022-03-27 17:35] LABS: BG BASE EXCESS -17.4 mmol/L (-2.0-2.0); BG CARBOXYHEMOGLOBIN 0.6 % (0.5-1.5); BG DEOXYHEMOGLOBIN 5.5 % (0.0-5.0); BG HCO3 ACT 9.4 mmol/L (22.0-26.0); BG METHEMOGLOBIN 0.5 % (0.0-1.5); BG OXYGEN SATURATION 94.4 % (92.0-98.5); BG OXYHEMOGLOBIN 93.4 % (94.0-97.0); BG PCO2 26.2 mmHg (35.0-45.0); BG PH 7.173 (7.350-7.450); BG PO2 80.4 mmHg (75.0-100.0); BG SAMPLE SITE LEFT FEMORAL; BG TOTAL HEMOGLOBIN 14.6 g/dL (12.0-18.0); BG VENT MODE VENT - AC
[2022-03-27 18:11] LABS: CLARITY URINE CLEAR (CLEAR); COLOR URINE DARK YELLOW (YELLOW); KETONES URINE TRACE (NEGATIVE); LEUKOCYTE ESTERASE URINE NEGATIVE (NEGATIVE); NITRITE URINE POSITIVE (NEGATIVE); OCCULT BLOOD URINE NEGATIVE (NEGATIVE); PROTEIN URINE 1+ (NEGATIVE); SPECIFIC GRAVITY URINE 1.034 (1.005-1.030); UROBILINOGEN URINE 0.2 E.U./dL (0.2-1.0)
[2022-03-27] MEDS ORDERED: DEXTROSE 50% WATER 50ML SYRINGE IV ONE (18:29)
[2022-03-27 18:39] LABS: *AMPHETAMINES SCREEN URINE NEGATIVE (NEGATIVE); *BARBITURATES SCREEN URINE NEGATIVE (NEGATIVE); *BENZODIAZEPINES SCREEN URINE NEGATIVE (NEGATIVE); *COCAINE SCREEN URINE NEGATIVE (NEGATIVE); CANNABINOID URINE SCREEN NEGATIVE (NEGATIVE); METHADONE URINE SCREEN NEGATIVE (NEGATIVE); OPIATES URINE SCREEN NEGATIVE (NEGATIVE); PHENCYCLIDINE URINE SCREEN NEGATIVE (NEGATIVE)
[2022-03-27] MEDS: VASOPRESSIN 20 UNIT in SODIUM CHLORIDE 0.9% 99 ML IV PRN (19:29)
[2022-03-27] MEDS ORDERED: CEFTRIAXONE 2 G in DEXTROSE 5% WATER 50 ML IV SCH (21:00)
[2022-03-27] MEDS ORDERED: CEFTRIAXONE 2 G PREMIX 50 ML IV SCH (21:00)
[2022-03-27] MEDS: DEXTROSE 50% WATER 50ML SYRINGE IV PRN (21:05)
[2022-03-27] MEDS: METRONIDAZOLE 500 MG PREMIX 100 ML IV SCH (21:37)
[2022-03-27] MEDS: HYDROCORTISONE SOD SUCCINATE 100 MG/2 ML VIAL IV SCH (21:38)
[2022-03-27] MEDS: NOREPINEPHRINE 32 MG in DEXT 5% WATER 218 ML IV PRN (23:00)
[2022-03-27 23:07] LABS: BG BASE EXCESS -18.5 mmol/L (-2.0-2.0); BG CARBOXYHEMOGLOBIN 0.3 % (0.5-1.5); BG DEOXYHEMOGLOBIN 28.9 % (0.0-5.0); BG FRACTION INSPIRED OXYGEN 100; BG HCO3 ACT 10.5 mmol/L (22.0-26.0); BG METHEMOGLOBIN 0.5 % (0.0-1.5); BG OXYGEN SATURATION 70.9 % (92.0-98.5); BG OXYHEMOGLOBIN 70.3 % (94.0-97.0); BG PCO2 36.2 mmHg (35.0-45.0); BG PH 7.081 (7.350-7.450); BG PO2 41.9 mmHg (75.0-100.0); BG SAMPLE SITE LEFT FEMORAL; BG TOTAL HEMOGLOBIN 12.8 g/dL (12.0-18.0); BG VENT MODE VENT - AC
[2022-03-28] VITALS (121 sets, daily range): BP systolic 30–143; BP diastolic 21–83
[2022-03-28] MEDS: SODIUM BICARBONATE 150 MEQ in SODIUM CHLORIDE 0.45% 1,000 ML IV SCH ×3 (00:11→18:35)
[2022-03-28] MEDS: BLOOD SUGAR DIAGNOSTIC STRIP TEST SCH ×6 (00:20→20:25)
[2022-03-28] MEDS ORDERED: MIDAZOLAM HCL 100 MG in SODIUM CHLORIDE 0.9% 80 ML IV PRN (00:30)
[2022-03-28] MEDS ORDERED: SODIUM BICARBONATE 8.4% 1 MEQ/ML 50ML SYR IV NR (00:30)
[2022-03-28] MEDS ORDERED: FENTANYL 2500MCG/250ML PMX 250 ML IV PRN (00:30)
[2022-03-28] MEDS: DEXTROSE 50% WATER 50ML SYRINGE IV PRN ×3 (00:35→08:18)
[2022-03-28] MEDS: PHENYLEPHRINE 100 MG in DEXT 5% WATER 240 ML IV PRN ×3 (00:44→17:50)
[2022-03-28] MEDS: IPRATROPIUM BROMIDE (0.02%) 0.5MG/2.5ML NEB HHN SCH ×4 (01:00→20:15)
[2022-03-28] MEDS: VASOPRESSIN 20 UNIT in SODIUM CHLORIDE 0.9% 99 ML IV PRN ×2 (04:33→14:19)
[2022-03-28] MEDS: INSULIN LISPRO 100 UNITS/ML SUBCUT SCH ×4 (06:00→20:00)
[2022-03-28 06:04] LABS: INR 2.3; PROTHROMBIN TIME 23.4 sec (9.6-11.0)
[2022-03-28] MEDS: ALBUMIN HUMAN 25GM/100ML (25%) IV SCH ×2 (06:05→12:29)
[2022-03-28] MEDS: HYDROCORTISONE SOD SUCCINATE 100 MG/2 ML VIAL IV SCH ×3 (06:05→21:17)
[2022-03-28] MEDS: METRONIDAZOLE 500 MG PREMIX 100 ML IV SCH ×3 (06:05→21:13)
[2022-03-28 06:11] LABS: BG BASE EXCESS -13.9 mmol/L (-2.0-2.0); BG CARBOXYHEMOGLOBIN 0.2 % (0.5-1.5); BG DEOXYHEMOGLOBIN 2.8 % (0.0-5.0); BG FRACTION INSPIRED OXYGEN 100; BG HCO3 ACT 10.4 mmol/L (22.0-26.0); BG METHEMOGLOBIN 0.3 % (0.0-1.5); BG OXYGEN SATURATION 97.2 % (92.0-98.5); BG OXYHEMOGLOBIN 96.7 % (94.0-97.0); BG PCO2 21.5 mmHg (35.0-45.0); BG PH 7.303 (7.350-7.450); BG PO2 97.3 mmHg (75.0-100.0); BG SAMPLE SITE RIGHT RADIAL; BG TOTAL HEMOGLOBIN 12.3 g/dL (12.0-18.0); BG VENT MODE VENT - AC
[2022-03-28] MEDS: NOREPINEPHRINE 32 MG in DEXT 5% WATER 218 ML IV PRN ×2 (06:48→15:26)
[2022-03-28] MEDS: DEXT 10% WATER 1,000 ML IV SCH (07:42)
[2022-03-28 10:47] LABS: HEMATOCRIT. 33.4 % (42.0-52.0); HEMOGLOBIN. 11.3 g/dL (14.0-18.0); MEAN CORPUSCULAR HEMOGLOBIN 35.9 pg (28.0-32.0); RED BLOOD CELL COUNT 3.15 mill/uL (4.7-6.1); RED CELL DISTRIBUTION WIDTH 17.1 % (11.6-14.6)
[2022-03-28 12:04] LABS: PLATELET 58 x1000/uL (130-400)
[2022-03-28 12:11] LABS: PLATELET ESTIMATE DECREASED
[2022-03-28] MEDS: CEFTRIAXONE 2 G in DEXTROSE 5% WATER 50 ML IV SCH (12:29)
[2022-03-28] MEDS: PHYTONADIONE 10MG/ML AMP SUBCUT SCH (14:18)
[2022-03-28] MEDS ORDERED: SODIUM BICARBONATE 150 MEQ in SODIUM CHLORIDE 0.45% 1,000 ML IV SCH (14:30)
[2022-03-28] MEDS: DOPAMINE 800MG PREMIX (DOUBLE) 250 ML IV PRN (14:47)
[2022-03-28 16:37] LABS: TOTAL IRON BINDING CAPACITY 169 ug/dL (250-450)
[2022-03-28 17:04] LABS: VITAMIN B12 SERUM 1992 pg/mL (211-911)
[2022-03-28 18:43] LABS: FERRITIN 7407 ng/mL (22-322)
[2022-03-29] VITALS (48 sets, daily range): BP systolic 50–88; BP diastolic 25–54
[2022-03-29] MEDS: BLOOD SUGAR DIAGNOSTIC STRIP TEST SCH ×3 (00:16→08:00)
[2022-03-29] MEDS: DEXTROSE 50% WATER 50ML SYRINGE IV PRN (00:18)
[2022-03-29] MEDS: VASOPRESSIN 20 UNIT in SODIUM CHLORIDE 0.9% 99 ML IV PRN (00:53)
[2022-03-29] MEDS: NOREPINEPHRINE 32 MG in DEXT 5% WATER 218 ML IV PRN ×2 (00:54→09:48)
[2022-03-29] MEDS: IPRATROPIUM BROMIDE (0.02%) 0.5MG/2.5ML NEB HHN SCH ×2 (02:00→07:50)
[2022-03-29] MEDS: DOPAMINE 800MG PREMIX (DOUBLE) 250 ML IV PRN (03:34)
[2022-03-29] MEDS: SODIUM BICARBONATE 150 MEQ in SODIUM CHLORIDE 0.45% 1,000 ML IV SCH (03:42)
[2022-03-29] MEDS: INSULIN LISPRO 100 UNITS/ML SUBCUT SCH ×3 (04:00→08:00)
[2022-03-29] MEDS: PHENYLEPHRINE 100 MG in DEXT 5% WATER 240 ML IV PRN (04:40)
[2022-03-29] MEDS: HYDROCORTISONE SOD SUCCINATE 100 MG/2 ML VIAL IV SCH (05:31)
[2022-03-29] MEDS: METRONIDAZOLE 500 MG PREMIX 100 ML IV SCH (05:31)
[2022-03-29 06:27] LABS: INR 2.7; PROTHROMBIN TIME 26.6 sec (9.6-11.0)
[2022-03-29 06:40] LABS: CHLORIDE 87 mEq/L (98-107)
[2022-03-29] MEDS: DEXT 10% WATER 1,000 ML IV SCH (06:51)
[2022-03-29 08:25] LABS: BG BASE EXCESS -18.7 mmol/L (-2.0-2.0); BG CARBOXYHEMOGLOBIN 0.3 % (0.5-1.5); BG FRACTION INSPIRED OXYGEN 100; BG METHEMOGLOBIN 0.3 % (0.0-1.5); BG OXYGEN SATURATION 88.9 % (92.0-98.5); BG OXYHEMOGLOBIN 88.4 % (94.0-97.0); BG PCO2 21.9 mmHg (35.0-45.0); BG PH 7.178 (7.350-7.450); BG PO2 65.6 mmHg (75.0-100.0); BG SAMPLE SITE RIGHT BRACHIAL; BG TOTAL HEMOGLOBIN 9.5 g/dL (12.0-18.0); BG VENT MODE VENT - AC
[2022-03-29] MEDS: PHYTONADIONE 10MG/ML AMP SUBCUT SCH (09:29)
[2022-03-29] MEDS: CEFTRIAXONE 2 G in DEXTROSE 5% WATER 50 ML IV SCH (09:29)
[2022-03-29 10:05] LABS: PHOSPHORUS 9.6 mg/dL (2.5-4.9)
[2022-03-29] MEDS ORDERED: SODIUM POLYSTYRENE SULFONATE 15 G/60 ML BOT PR NR (10:30)
[2022-03-29] MEDS ORDERED: MORPHINE SULFATE 2 MG/ML CPJ (NOT FOR IM USE) IV PRN (11:00)
[2022-03-29] MEDS ORDERED: NALOXONE HCL 0.4MG/ML VIAL IV PRN (11:15)
[2022-03-29] MEDS ORDERED: LEVOFLOXACIN 250MG PREMIX 50 ML IV SCH (16:00)
== END 2022-03-29 12:00 | DRG 720 ==
LOC: ER 07:10 → CVICU 12:52 → EDBEDREQTM 12:53 → EDBEDREQ 12:53 → EDBEDREQSVC 12:53 → CANRESERV 14:48 → ENRESERV 14:48
PROVIDERS: ADMIT Internal Medicine; ATTEND Internal Medicine
PROC: 5A1945Z Respiratory Ventilation, 24-96 Consecutive Hours (ICD-10-PCS; principal; 2022-03-27)
PROC: 0BH17EZ Insertion of Endotracheal Airway into Trachea, Via Natural or Artificial Opening (ICD-10-PCS; 2022-03-27)
PROC: 02HV33Z Insertion of Infusion Device into Superior Vena Cava, Percutaneous Approach (ICD-10-PCS; 2022-03-27)
PROC: B548ZZA Ultrasonography of Superior Vena Cava, Guidance (ICD-10-PCS; 2022-03-27)
PROC: 30233K1 Transfusion of Nonautologous Frozen Plasma into Peripheral Vein, Percutaneous Approach (ICD-10-PCS; 2022-03-28)
DX: A41.9 Sepsis, unspecified organism (principal); J96.01 Acute respiratory failure with hypoxia; R65.21 Severe sepsis with septic shock; E43 Unspecified severe protein-calorie malnutrition; D68.9 Coagulation defect, unspecified; E87.20 Acidosis, unspecified; E87.1 Hypo-osmolality and hyponatremia; Z66 Do not resuscitate; K70.31 Alcoholic cirrhosis of liver with ascites; N17.9 Acute kidney failure, unspecified; J98.11 Atelectasis; K40.20 Bilateral inguinal hernia, without obstruction or gangrene, not specified as recurrent; K52.9 Noninfective gastroenteritis and colitis, unspecified; R16.1 Splenomegaly, not elsewhere classified; D53.9 Nutritional anemia, unspecified; F10.10 Alcohol abuse, uncomplicated; E87.3 Alkalosis; E87.5 Hyperkalemia; N18.9 Chronic kidney disease, unspecified; E87.70 Fluid overload, unspecified; Z82.49 Family history of ischemic heart disease and other diseases of the circulatory system; Z68.29 Body mass index [BMI] 29.0-29.9, adult; Z88.0 Allergy status to penicillin; Z79.899 Other long term (current) drug therapy
CPT/HCPCS: 31500; 36415; 36600; 71045; 74177; 80048; 80053; 80076; 80305; 80320; 81003; 82140; 82248; 82375; 82607; 82728; 82746; 82805; 82962; 83036; 83540; 83550; 83605; 83735; 84100; 84145; 85025; 85044; 86850; 86900; 86927; 87070; 93005; 93306; 94002; 94003; 94640; 99291; J0696; J1265; J1720; J2250; J2270; J2370; J2405; J3010; J3430; J3490; J7030; J7050; J7060; P9017; P9047; Q9967; A4315; G0480